=== PATIENT | male | born 1955 | race Caucasian/White ===

== ENCOUNTER 2018-11-08 08:52 | Inpatient (IN) | payer MEDICAID ==
[~2018-11-08] VITALS: Ht 180.3 cm; Wt 87.1 kg
[2018-11-08] VITALS (21 sets, daily range): BP systolic 119–186; BP diastolic 33–171
[2018-11-08] MEDS ORDERED: LISI-186 PO (09:00)
[2018-11-08] MEDS ORDERED: ATOR20TA65 PO (09:00)
[2018-11-08 09:47] LABS: BASOPHILS % 1.4 % (0.0-2.0); EOSINOPHILS % 1.5 % (0.0-5.0); HEMATOCRIT. 46.7 % (42.0-52.0); HEMOGLOBIN. 16.3 g/dL (14.0-18.0); LYMPHOCYTES % 25.5 % (20.0-50.0); MEAN CORPUSCULAR HEMOGLOBIN 32.7 pg (28.0-32.0); MEAN CORPUSCULAR VOLUME 94.1 fL (80.0-94.0); MONOCYTES % 5.2 % (2.0-8.0); NEUTROPHILS % 66.4 % (40.0-76.0); PLATELET 173 x1000/uL (130-400); RED BLOOD CELL COUNT 4.97 mill/uL (4.7-6.1); RED CELL DISTRIBUTION WIDTH 13.7 % (11.6-14.6)
[2018-11-08 09:53] LABS: CHLORIDE 109 mEq/L (98-107)
[2018-11-08 09:55] LABS: INR 1.2
[2018-11-08 09:57] LABS: ETHANOL BLOOD < 10 mg/dL
[2018-11-08] MEDS ORDERED: ALTEPLASE IV STA (10:23)
[2018-11-08] MEDS ORDERED: ALTEPLASE 100MG/VIAL IV STA (10:23)
[2018-11-08] MEDS ORDERED: HYDRALAZINE 20MG/ML VIAL IV ONE (10:30)
[2018-11-08 10:52] LABS: CLARITY URINE CLEAR (CLEAR); KETONES URINE NEGATIVE (NEGATIVE); LEUKOCYTE ESTERASE URINE NEGATIVE (NEGATIVE); NITRITE URINE NEGATIVE (NEGATIVE); OCCULT BLOOD URINE NEGATIVE (NEGATIVE); PROTEIN URINE NEGATIVE (NEGATIVE); SPECIFIC GRAVITY URINE 1.002 (1.005-1.030); UROBILINOGEN URINE 0.2 E.U./dL (0.2-1.0)
[2018-11-08 10:55] LABS: COLOR URINE PALE YELLOW (YELLOW)
[2018-11-08 11:02] LABS: *AMPHETAMINES SCREEN URINE NEGATIVE (NEGATIVE); *BARBITURATES SCREEN URINE NEGATIVE (NEGATIVE); *BENZODIAZEPINES SCREEN URINE NEGATIVE (NEGATIVE); *COCAINE SCREEN URINE NEGATIVE (NEGATIVE)
[2018-11-08 11:03] LABS: CANNABINOID URINE SCREEN PRESUMTIVE POSITIVE (NEGATIVE); OPIATES URINE SCREEN NEGATIVE (NEGATIVE); PHENCYCLIDINE URINE SCREEN NEGATIVE (NEGATIVE)
[2018-11-08 11:05] LABS: METHADONE URINE SCREEN NEGATIVE (NEGATIVE)
[2018-11-08] MEDS ORDERED: HYDRALAZINE 20MG/ML VIAL ONE (11:05)
[2018-11-08] MEDS ORDERED: *NO ASPIRIN X 24 HOURS XX SCH (11:15)
[2018-11-08] MEDS ORDERED: MORPHINE SULFATE 4 MG/ML CPJ (NOT FOR IM USE) IV ONE (11:45)
[2018-11-08] MEDS ORDERED: NICARDIPINE 40MG/200ML PREMIX 200 ML IV SCH (11:45)
[2018-11-08] MEDS ORDERED: ACETAMINOPHEN 325MG TABLET PO PRN (13:30)
[2018-11-08] MEDS ORDERED: ONDANSETRON HCL 4MG/2ML INJ IV PRN (13:30)
[2018-11-08] MEDS ORDERED: IOHEXOL-350 100 ML BOTTLE ONE (13:54)
[2018-11-08] MEDS ORDERED: DOXY-197 PO (14:06)
[2018-11-08] MEDS ORDERED: DOXYCYCLINE HYCLATE 100MG CAPSULE PO SCH (15:00)
[2018-11-08] MEDS ORDERED: NICARDIPINE 40MG/200ML PREMIX 200 ML IV PRN (18:45)
[2018-11-08] MEDS ORDERED: NICARDIPINE 50 MG in SODIUM CHLORIDE 0.9% 230 ML IV PRN (18:45)
[2018-11-08] MEDS ORDERED: ATORVASTATIN CALCIUM 40MG TABLET PO SCH (21:00)
[2018-11-08] MEDS ORDERED: AMLODIPINE 5MG TABLET PO SCH (21:00)
== END 2018-11-08 19:30 | disposition short-term general hospital (02) | DRG 45 ==
LOC: ER 08:52 → MICUSO 12:19 → EDBEDREQ 12:21 → EDBEDREQSVC 12:21 → ENRESERV 12:28
PROVIDERS: ADMIT Internal Medicine; ATTEND Internal Medicine
DX: I63.81 Other cerebral infarction due to occlusion or stenosis of small artery (principal); E87.8 Other disorders of electrolyte and fluid balance, not elsewhere classified; I10 Essential (primary) hypertension; F12.90 Cannabis use, unspecified, uncomplicated; E78.5 Hyperlipidemia, unspecified; I16.1 Hypertensive emergency; Z88.9 Allergy status to unspecified drugs, medicaments and biological substances
CPT/HCPCS: 36415; 70496; 70498; 70551; 71045; 80305; 80320; 81003; 82962; 83721; 84484; 92610; 93005; 96374; 99285; J0360; J2270; J2997; J3490; J7050; Q9967; G0480